=== PATIENT | female | born 1980 | race Caucasian/White ===

== ENCOUNTER 2016-04-13 10:35 | Emergency (ER) | payer BC ==
--- NOTE | 2016-04-13 10:46 | UCPHY ---
H & P Time Seen by Provider: 04/13/16 10:45 Patient Type: Established HPI/ROS: CHIEF COMPLAINT: Dysuria HISTORY OF PRESENT ILLNESS: The patient presents to the urgent care with a 1 day history of dysuria. She denies fever, flank pain, vomiting or significant abdominal pain. She has a history of urinary tract infection that occurred in December of 2015 which was treated with antibiotics and ran an uncomplicated course. The patient has no additional acute medical complaints. REVIEW OF SYSTEMS: A comprehensive 10 point review of systems is otherwise negative aside from elements mentioned in the history of present illness. Smoking Status: Never smoked Physical Exam: General Appearance: Alert, no distress Respiratory: There are no retractions, lungs are clear to auscultation Cardiovascular: Regular rate and rhythm Gastrointestinal: Abdomen is soft and nontender, no masses, bowel sounds normal Back: No CVA tenderness Constitutional: Initial Vital Signs Temperature (C) 36.4 C 04/13/16 10:48 Heart Rate 84 04/13/16 10:48 Respiratory Rate 16 04/13/16 10:48 Blood Pressure 128/72 H 04/13/16 10:48 O2 Sat (%) 100 04/13/16 10:48 O2 Delivery Mode Room Air Allergies/Adverse Reactions: No Known Allergies Allergy (Verified 04/13/16 10:48) Home Medications: Medication Instructions Recorded Cephalexin [Keflex] 500 mg PO TID #15 cap 04/13/16 Medical Decision Making ED Course/Re-evaluation: The patient presents the emergency department with complaints of dysuria. She does have evidence of a urinary tract infection noted on her urinalysis. The patient has no clinical evidence of pyelonephritis. The patient will be started on a 5 day course of Keflex. The patient is advised to return to the ED or urgent care for any progressive symptoms, fever, back pain, vomiting or other acute complaints. Differential Diagnosis: Differential diagnosis considered includes cystitis, pyelonephritis - Data Points Laboratory Results: 04/13/16 10:45 Urine Color YELLOW Urine Appearance HAZY Urine pH 6.5 (5.0-7.5) Ur Specific [place] 1.010 (1.002-1.030) Urine Protein NEGATIVE (NEGATIVE) Urine Ketones NEGATIVE (NEGATIVE) Urine Blood 3+ H (NEGATIVE) Urine Nitrate NEGATIVE (NEGATIVE) Urine Bilirubin NEGATIVE (NEGATIVE) Urine Urobilinogen 0.2 EU EU (0.2-1.0) Ur Leukocyte Esterase 1+ H (NEGATIVE) Urine RBC 25-50 /hpf H /hpf (0-3) Urine WBC 25-50 /hpf H /hpf (0-3) Ur Epithelial Cells 1+ /lpf /lpf (NONE-1+) Urine Bacteria 2+ /hpf H /hpf (NONE SEEN) Urine Mucus TRACE /lpf /lpf (NONE-1+) Ur Culture Indicated? INDICATED H (NI) Urine Glucose NEGATIVE (NEGATIVE) Departure - Departure Disposition: Home, Routine, Self-Care Clinical Impression: UTI (urinary tract infection) Condition: Good Instructions: Urinary Tract Infection in Women (ED) Additional Instructions: 1. Please take antibiotics as directed for next 5 days. 2. Please return to the ED or urgent care for increasing pain, fever, vomiting or other concerns. 3. Please follow-up with your primary care provider as needed. Referrals: Lisa Gonzalez MD [Primary Care Provider] - As per Instructions Prescriptions: Cephalexin [Keflex] 500 mg PO TID #15 cap - PQRS PQRS Measurement: Not applicable
[2016-04-13 10:51] VITALS: BP 128/72; PULSE 84; RESP 16; TEMP 97.5; O2SAT 100
[2016-04-13 10:51] LABS: COLOR YELLOW; LEUKOCYTE ESTERASE,URINE 1+ (NEGATIVE); NITRITE,URINE NEGATIVE (NEGATIVE); PH,URINE 6.5 (5.0-7.5)
[2016-04-13 11:05] LABS: BACTERIA 2+ /hpf (NONE SEEN); MUCUS TRACE /lpf (NONE-1+); RBC,URINE 25-50 /hpf (0-3); WBC,URINE 25-50 /hpf (0-3)
== END 2016-04-13 11:13 | disposition home or self-care (01) ==
LOC: CED 10:35
DX: N39.0 Urinary tract infection, site not specified (principal)
CPT/HCPCS: 81003-PO; 81015-PO; 99214-PO; G0463-PO